=== PATIENT | male | born 1945 | race Caucasian/White ===

== ENCOUNTER 2019-01-05 07:45 | Inpatient (IN) ==
[2019-01-05] MEDS ORDERED: ONDANSETRON INJ 2 MG/ML 2 ML VIAL IV STA (08:21)
[2019-01-05] MEDS ORDERED: SODIUM CHLORIDE 0.9% 1000ML 1,000 ML IV SCH (08:30)
[2019-01-05 09:00] LABS: Basophils # (auto) 0.01 K/uL (0-0.2); Basophils % (auto) 0.1 %; Hematocrit (blood only) 37.6 % (42-52); Hemoglobin 13.2 g/dL (14.0-18.0); Immature Granulocytes # (auto) 0.02 K/uL (0.00-0.02); Immature Granulocytes % (auto) 0.2 %; Lymphocytes # (auto) 0.36 K/uL (1.2-3.4); Lymphocytes % (auto) 3.1 %; Mean Corpuscular Hgb Conc 35.1 g/dL (32-36); Mean Corpuscular Volume 79.8 fL (80-100); Mean Platelet Volume 9.8 fL (7.4-10.4); Monocytes # (auto) 0.62 K/uL (0.11-0.59); Monocytes % (auto) 5.4 %; Neutrophils # (auto) 10.53 K/uL (1.4-6.5); Neutrophils % (auto) 91.2 %; Platelet Count 149 K/uL (130-400); RDW Coefficient of Variation 17.1 % (11.5-14.5); RDW Standard Deviation 50.5 fL (36.4-46.3); Red Blood Count 4.71 M/uL (4.7-6.1); White Blood Count 11.54 K/uL (4.8-10.8)
--- NOTE | 2019-01-05 09:13 | Emergency Department Note ---
ED Visit Note I assisted Dr. Olguin in the evaluation and management of this patient. Please see his note for complete visit details. Leeann Wilcox MD PGY3 [facility] Family and Community Medicine Residency at [facility] . Resident Activity Tracking Resident Involvement: Resident Care Provided Care Provided: Adult ED
[2019-01-05 09:17] LABS: Albumin Level 2.8 gm/dl (3.4-5.0); BUN Creatinine Ratio 33.3 (10-20); Calcium 10.2 mg/dl (8.5-10.1); Est GFR (African American) 46.7; Est GFR (Non-African American) 40.3; Potassium 4.4 mmol/L (3.5-5.1)
[2019-01-05 09:20] LABS: Albumin Globulin Ratio 0.5 (0.9-2); Bilirubin,Total 0.8 mg/dl (0.2-1); Globulin 5.2 gm/dl (2.5-4.0)
--- NOTE | 2019-01-05 09:33 | CT Scan Report ---
ABDOMEN AND PELVIS CT WITHOUT CONTRAST CT DOSE: 297.49 mGy.cm HISTORY: lower abd pain, n/v/d TECHNIQUE: Multiaxial CT images of the abdomen and pelvis were performed without contrast. A dose lo wering technique was utilized adhering to the principles of ALARA. COMPARISON STUDY: None. FINDINGS: Mild dependent changes seen at the lung bases. No pneumoperitoneum. No pneumatosis. The une nhanced liver, gallbladder, spleen, pancreas, and adrenal glands are unremarkable. Normal caliber abd ominal aorta. The right kidney is within normal limits. Bilateral renal hypodense lesions are incompl etely characterized on this noncontrast study but favor cysts. Moderate to severe left-sided hydronep hrosis to the level of the ureteropelvic junction. No renal or ureteral calculi identified. Large mehreen unt of well-formed stool within the rectum. The majority of the colon is decompressed. The right lowe r quadrant ostomy. Distended gas and fluid-filled loops of small bowel seen throughout the abdomen. T hese measure up to 6.4 cm in diameter. There are decompressed loops of small bowel within the right l ower quadrant and lower mid abdomen at the area of suture material best seen on images 362 through 37 3. This likely represents the site of the high-grade small bowel obstruction. Small fat-containing mi dline ventral hernia. IMPRESSION: 1. High-grade small bowel obstruction with the transition point located within the lower mid abdomen/ right lower quadrant, likely associated with a site of prior bowel anastomosis. 2. Moderate to severe left-sided hydronephrosis to the level of the ureteropelvic junction. This may be secondary to compression of the ureter from the distended bowel loops. No renal or ureteral calcul i identified. 3. Large amount of well-formed stool within the distal colon. 4. Right lower quadrant colostomy. Electronically signed by: Dereje Aldana M.D. 01/05/2019 9:32 AM
--- NOTE | 2019-01-05 10:03 | Emergency Department Note ---
Entered by Carleen Kennedy acting as a scribe for Ovidio Olguin DO History of Present Illness General Chief complaint: GI Assessment Stated complaint: ABD PAIN Time Seen by Provider: 01/05/19 08:07 Source: patient and family () History of Present Illness Onset (ago): day(s) 5 Location: abdomen Pain Consistency: + other (persistent ) Maximum Pain Intensity: 9 Quality: + other (nausea, vomiting, and diarrhea) Associated symptoms: + fever/chills (positive chills; negative fever) and + other (positive lower abdominal pain; positive constipation) Treatments prior to arrival: other (nausea medication) The patient is a 73 year old male who presents to the Emergency Room with complaints of persistent nausea, vomiting, and diarrhea that began 5 days prior to arrival. The patient states that he has been vomiting about 1-2 times per day. Per the patient's , the patient has been taking some nausea medication for his symptoms. The patient's states that the patient has had some lower abdominal pain for an unknown amount of time. The patient reports some constipation recently. The patient's reports chills, but denies fevers. Per the patient's , the patient works out side in the heat frequently. The patient states that he had his bladder removed in August due to his bladder can cer. Home Medications Home Medications Medication Instructions Recorded Confirmed Type acetaminophen [Tylenol Extra 500 mg PO Q6H PRN 01/05/19 01/05/19 History Strength] aspirin 81 mg PO QAM 01/05/19 01/05/19 History atorvastatin 20 mg PO HS 01/05/19 01/05/19 History omeprazole 20 mg PO QAM 01/05/19 01/05/19 History ondansetron HCl 4 mg PO Q6H PRN 01/05/19 01/05/19 History sertraline 25 mg PO HS 01/05/19 01/05/19 History Allergies Allergy/AdvReac Type Severity Reaction Status Date / Time No Known Allergies Allergy Verified 01/05/19 08:20 Past Med/Surg History Medical History Heart murmur (Chronic) Bladder cancer Family History Other No pertinent family history in first degree relatives Social History Feels Safe at Home: Yes Review of Systems See HPI for pertinent positives & negatives. and A total of 10 systems reviewed and were otherwise negative Physical Exam Vital Signs Vital Signs - 24 hr 01/05/19 07:46 Temperature 36.5 C Temperature Source Oral Sepsis Recent Fever Within 48 Hours Yes Sepsis New/Unexplained Change in Mental Status No Sepsis Action Taken by Nursing Physician Notified Pulse Rate 114 H Respiratory Rate 18 Respiratory Effort / Characteristics Non-Labored Respiratory Depth Normal Blood Pressure 95/64 L Blood Pressure Mean 74 Blood Pressure Position Sitting Pulse Oximetry 97 Oxygen Delivery Method Room Air CONSTITUTIONAL/VITAL SIGNS: Reviewed / noted above. GENERAL: Non-toxic in appearance. INTEGUMENTARY: Warm, dry, and [place]. HEAD: Normocephalic. EYES: without scleral icterus or trauma. ENT/OROPHARYNX: clear and moist. LYMPHADENOPATHY/NECK: Is supple without lymphadenopathy or meningismus. RESPIRATORY: Lungs clear and equal. CARDIOVASCULAR: Regular rate and rhythm. GI/ABDOMEN: Tender to palpation of the left lower quadrant. Ureterostomy in the right lower quadrant that looks normal. Soft. No organomegaly or pulsatile mass. No rebound or guarding. Normal bowel sounds. EXTREMITIES: Warm and well perfused. BACK: No CVA tenderness. NEUROLOGICAL: Intact without focal deficits. PSYCHIATRIC: normal affect. MUSCULOSKELETAL: Normally developed with good muscle tone. Course 0830: The patient was seen and evaluated by the resident Leeann Wilcox. 0934: Past medical records reviewed. The patient was evaluated in room B3B. A complete history and physical exam was performed. 0948: I discussed the case with Dr. Fany Mosher who recommends having the patient further evaluated and states that he will consult. 0951: Dr. Francis discussed the case with Leeann WOLF who accepts the patient for further evaluation under Dr. Gustavo Crouch service. Consultations Consultation #1: I discussed the case with Dr. Fany Mosher who recommends having the patient further evaluated and states that he will consult. Time: 09:48 Consultation #2: Dr. Francis discussed the case with Leeann WOLF who accepts the patient for further evaluation under Dr. [facility] Hospital[facility] service Time: 09:51 Administered Medications Discontinued Medications Sodium Chloride (Nss 1000ml) 1,000 mls @ 999 mls/hr IV .Q1H1M MELLY Stop: 01/05/19 09:30 Last Admin: 01/05/19 08:39 Dose: 999 mls/hr Documented by: [id number] Ondansetron HCl (Zofran) 4 mg IV NOW STA Stop: 01/05/19 08:22 Last Admin: 01/05/19 08:39 Dose: 4 mg Documented by: [id number] Medical Decision Making Differential Diagnosis Differential diagnosis: Etiologies such as appendicitis, diverticulitis, PUD, biliary pathology, UTI, pancreatitis, obstruction, mesenteric ischemia, aortic pathology, infections, inflammatory bowel disease, renal colic, as well as others were entertained. Medical Records Attestation: I reviewed the patient's medical records. Home Medications Current Medication List: was personally reviewed by me Laboratory Data Attestation: I reviewed the patient's lab results. Result diagrams: 01/05/19 08:40 01/05/19 08:40 Lab Results 01/05/19 01/05/19 Range/Units 08:40 08:40 WBC 11.54 H (4.8-10.8) K/uL RBC 4.71 (4.7-6.1) M/uL Hgb 13.2 L (14.0-18.0) g/dL Hct 37.6 L (42-52) % MCV 79.8 L (80-100) fL MCH 28.0 (25-34) pg MCHC 35.1 (32-36) g/dL RDW Std Deviation 50.5 H (36.4-46.3) fL RDW Coeff of Lisa 17.1 H (11.5-14.5) % Plt Count 149 (130-400) K/uL MPV 9.8 (7.4-10.4) fL Immature Gran % (Auto) 0.2 % Neut % (Auto) 91.2 % Lymph % (Auto) 3.1 % [place] % (Auto) 5.4 % Eos % (Auto) 0.0 % Baso % (Auto) 0.1 % Immature Gran # (Auto) 0.02 (0.00-0.02) K/uL Neut # (Auto) 10.53 H (1.4-6.5) K/uL Lymph # (Auto) 0.36 L (1.2-3.4) K/uL [place] # (Auto) 0.62 H (0.11-0.59) K/uL Eos # (Auto) 0.00 (0-0.5) K/uL Baso # (Auto) 0.01 (0-0.2) K/uL Sodium 132 L (136-145) mmol/L Potassium 4.4 (3.5-5.1) mmol/L Chloride 98 (98-107) mmol/L Carbon Dioxide 27 (21-32) mmol/L Anion Gap 7.0 (3-11) BUN 55 H (7-18) mg/dl Creatinine 1.65 H (0.6-1.4) mg/dl Est Cr Clr Drug Dosing 35.0 ml/min Est GFR ( Amer) 46.7 Est GFR (Non-Af Amer) 40.3 BUN/Creatinine Ratio 33.3 H (10-20) Glucose 124 H (70-99) mg/dl Calcium 10.2 H (8.5-10.1) mg/dl Total Bilirubin 0.8 (0.2-1) mg/dl AST 22 (15-37) U/L ALT 31 (12-78) U/L Alkaline Phosphatase 109 (45-117) U/L Total Protein 8.0 (6.4-8.2) gm/dl Albumin 2.8 L (3.4-5.0) gm/dl Globulin 5.2 H (2.5-4.0) gm/dl Albumin/Globulin Ratio 0.5 L (0.9-2) Lipase 80 (73-393) U/L Imaging Data Radiologist's Impression: Radiology results as stated below per my review and the radiologist's interpretation: ABDOMEN AND PELVIS CT WITHOUT CONTRAST CT DOSE: 297.49 mGy.cm HISTORY: lower abd pain, n/v/d TECHNIQUE: Multiaxial CT images of the abdomen and pelvis were performed without contrast. A dose lowering technique was utilized adhering to the principles of ALARA. COMPARISON STUDY: None. FINDINGS: Mild dependent changes seen at the lung bases. No pneumoperitoneum. No pneumatosis. The unenhanced liver, gallbladder, spleen, pancreas, and adrenal glands are unremarkable. Normal caliber abdominal aorta. The right kidney is within normal limits. Bilateral renal hypodense lesions are incompletely characterized on this noncontrast study but favor cysts. Moderate to severe left-sided hydronephrosis to the level of the ureteropelvic junction. No renal or ureteral calculi identified. Large amount of well-formed stool within the rectum. The majority of the colon is decompressed. The right lower quadrant ostomy. Distended gas and fluid-filled loops of small bowel seen throughout the abdomen. These measure up to 6.4 cm in diameter. There are decompressed loops of small bowel within the right lower quadrant and lower mid abdomen at the area of suture material best seen on images 362 through 373. This likely represents the site of the high-grade small bowel obstruction. Small fat-containing midline ventral hernia. IMPRESSION: 1. High-grade small bowel obstruction with the transition point located within the lower mid abdomen/right lower quadrant, likely associated with a site of prior bowel anastomosis. 2. Moderate to severe left-sided hydronephrosis to the level of the ureteropelvic junction. This may be secondary to compression of the ureter from the distended bowel loops. No renal or ureteral calculi identified. 3. Large amount of well-formed stool within the distal colon. 4. Right lower quadrant colostomy. Electronically signed by: Dereje Aldana M.D. 01/05/2019 9:32 AM Blood Pressure Blood Pressure Findings: Low blood pressure Blood Pressure Disposition: further management by hospitalist JOLYNN Narrative This is a 73-year-old male who presents to the ED with a chief complaint of some lower abdominal pain that has been ongoing for the past 4 to 5 days. The patient also reports nausea, vomiting diarrhea. The patient is somewhat of a poor historian. The patient does have a history of bladder cancer and has had his bladder removed and has a ureterostomy stoma. The patient CT scan today reveals a small bowel obstruction. Details as noted above. There is also some moderate to severe left-sided hydronephrosis possibly related to the obstruction. His BUN is 55. CBC is unremarkable. Creatinine is 1.65. The patient was treated with normal saline IV. He was given IV Zofran. NG tube was ordered. I spoke with Dr. Ludwig who will see the patient in consult. I spoke with the hospitalist, who will see the patient for admission. Impression & Plan SBO (small bowel obstruction), Vomiting Discharge Plan Visit Data Chief Complaint: GI Assessment Stated Complaint: ABD PAIN ED Provider: Ovidio Olguin ED Midlevel Provider: Leeann Wilcox Discharge Problem: SBO (small bowel obstruction), Vomiting Patient Disposition: Being Evaluated by Hospitalist Forms Stand Alone Forms: My [facility] Prescriptions Prescriptions: No Action atorvastatin 20 mg tablet 20 mg PO HS RF: 0 ondansetron HCl 4 mg tablet 4 mg PO Q6H PRN (Reason: Nausea) RF: 0 aspirin 81 mg Tablet,Delayed Release (Dr/Ec) 81 mg PO QAM RF: 0 acetaminophen [Tylenol Extra Strength] 500 mg Tablet 500 mg PO Q6H PRN (Reason: Pain) RF: 0 sertraline 25 mg tablet 25 mg PO HS RF: 0 omeprazole 20 mg capsule,delayed release(DR/EC) 20 mg PO QAM RF: 0 Referrals Referrals: Eric Monaco MD [Primary Care Provider] - Discharge Problem: Vomiting Qualifiers: Vomiting type: unspecified Vomiting Intractability: non-intractable Nausea presence: with nausea Qualified Code(s): R11.2 - Nausea with vomiting, u nspecified The scribe's documentation has been prepared under my direction and personally reviewed by me in its entirety. I confirm that the note above accurately reflects all work, treatment, procedures, and medical decision making performed by me.
[2019-01-05 10:24] LABS: Appearance Urine Clear (Clear); Bilirubin Urine Negative (Negative); Blood Urine 2+ (Negative); Color Urine Yellow; Epithelial Cell Urine Auto >30 /lpf (0-5); Glucose Urine UA Negative (Negative); Ketones Urine Negative (Negative); Leukocyte Esterase Urine 1+ (Negative); Nitrite Urine Negative (Negative); Protein Urine 2+ (Negative); Urobilinogen Urine Negative (Negative)
[2019-01-05] MEDS ORDERED: MoRPHine SULFATE 4 MG/ML 1 ML CARP\\VIAL IV ONE (10:38)
[2019-01-05 10:48] LABS: Bacteria Urine Automated 1+ (Negative)
--- NOTE | 2019-01-05 12:19 | XRay Report ---
KUB HISTORY: Status post placement of an enteric tube NGT placed COMPARISON: CT abdomen and pelvis 01/05/2019 FINDINGS: Prior median sternotomy. A catheter projects over the midline which loops upon itself, dist al tip projected superiorly outside the [id number]. Multiple distended small bowel loops redemonst rated throughout the abdomen. No pneumatosis or pneumoperitoneum. Degenerative changes of the spine. IMPRESSION: 1. High-grade small bowel obstruction without pneumoperitoneum. 2. Enteric tube looped within the esophagus, distal tip projected superiorly. Repositioning with foll ow-up imaging is needed. Electronically signed by: Alirio Diego M.D. 01/05/2019 12:17 PM
--- NOTE | 2019-01-05 13:00 | History & Physical Report ---
Date of Service January 05, 2019 Assessment & Plan (1) SBO (small bowel obstruction): -Admit to [facility] -Patient presenting from home with reports of abdominal distention, nausea, vomiting -In the ED, CT ABD/pelvis shows high-grade small bowel obstruction with the transition point located within the lower mid abdomen/right lower quadrant, likely associated with a site of prior bowel anastomosis. -Of note, patient underwent total cystectomy with ileal conduit placement 08/2018 at [facility] for high-grade bladder cancer -Currently hemodynamically stable, no acute distress; lactate 1.2 -Attempted to place NG tube in ED however nursing staff was unsuccessful -Supportive care with IVF, pain and nausea control, n.p.o. -Follow-up KUB in the a.m. -General surgery consult, case discussed with Dr. Ludwig -will observe overnight, with low threshold to transfer to [facility] given relatively recent surgery there (2) JAYSON (acute kidney injury): -Creatinine 1.6 (baseline ~0.8) -Likely prerenal nature secondary to poor p.o. intake, vomiting -IVF, follow renal functions (3) GERD (gastroesophageal reflux disease): -IV H2 isbaell while n.p.o. (4) Dyslipidemia: -Holding statin while n.p.o. (5) DVT prophylaxis: -SQ heparin History of Present Illness Chief Complaint: Abdominal pain, nausea, vomiting Primary Care Provider: Eric Monaco MD 73-year-old male who presents the ED for evaluation of abdominal pain, nausea, vomiting, diarrhea. Of note, patient recently underwent total cystectomy with ureteroileal conduit placement 08/2018 at [facility] for high-grade bladder cancer. Patient had been doing overall well since his surgery. Patient has been having some memory issues and is therefore a somewhat poor historian. is at the bedside who provides some history as well. Patient reports he has noted increasing abdominal distention over the past 2 weeks. Over the past 2 days, he has developed abdominal pain with nausea and vomiting. He denies hematemesis or coffee-ground emesis. Last normal bowel movement was 5 days ago. Patient does not believe he has been passing flatus for the past couple of days. Patient has been struggling with constipation since his surgery. He denies bright red bleeding per rectum or dark tarry stools. No chest pain or shortness of breath. Has had some occasional chills however did not take his temperature. Denies lightheadedness, dizziness, diaphoresis, syncopal events. In the ED, CT ABD/pelvis is showing high-grade small bowel obstruction with the transition point located within the lower mid abdomen/right lower quadrant, likely associated with a site of prior bowel anastomosis. Patient was given IVF and IV Zofran. Allergies Allergy/AdvReac Type Severity Reaction Status Date / Time No Known Allergies Allergy Verified 01/05/19 08:20 Home Medications Home Medications Medication Instructions Recorded Confirmed Type acetaminophen [Tylenol Extra 500 mg PO Q6H PRN 01/05/19 01/05/19 History Strength] aspirin 81 mg PO QAM 01/05/19 01/05/19 History atorvastatin 20 mg PO HS 01/05/19 01/05/19 History omeprazole 20 mg PO QAM 01/05/19 01/05/19 History ondansetron HCl 4 mg PO Q6H PRN 01/05/19 01/05/19 History sertraline 25 mg PO HS 01/05/19 01/05/19 History Past Med/Surg History Medical History Bladder cancer (Chronic) GERD (gastroesophageal reflux disease) (Chronic) Dyslipidemia (Chronic) Surgical History H/O left wrist surgery (Chronic) S/P ileal conduit (Chronic) H/O total cystectomy (Chronic) History of appendectomy (Chronic) H/O prostatectomy (Chronic) History of carpal tunnel surgery of right wrist (Chronic) History of carpal tunnel surgery of left wrist (Chronic) S/P ascending aortic aneurysm repair (Chronic) History of aortic valve replacement with bioprosthetic valve (Chronic) Family History Father Stroke Social History Preferred Language: Mongolian Communication Ability: Effective [employer] Required: No Beliefs That Will Affect Care: None Current Living Situation: Spouse Other Information That Helps Us Care for You: No Feels Safe at Home: Yes Safety Concerns: Feels Safe At This Time Smoking Status: Former smoker Tobacco Type: cigars ; Cigarettes Per Day: 20 ; Do You Dip or Chew Tobacco: No ; Smoking End Date: 07/14/2010 ; Second Hand Exposure: No ; Tobacco Cessation Education Requested by Patient: No Hx Alcohol Use: Yes Alcohol type: beer Hx Substance Use: No Review of Systems Review of Systems: ROS per HPI, all other systems reviewed and negative Physical Exam Constitutional: WD/WN, vitals as above Eyes: PERRL, conjunctivae normal, anicteric sclerae ENMT: external ear and nose normal, oropharynx normal Respiratory: normal respiratory effort, lungs clear to auscultation Cardiovascular: Rate/Rhythm: regular rate and regular rhythm Vessels: normal peripheral pulses Extremities: no edema Gastrointestinal (Abdomen): Inspection/Auscultation: + abdomen distended; + abnormal bowel sounds (Hypoactive) Percussion/Palpation: + abdomen tender (Generalized); + abdomen not soft (Semifirm) and no hepatosplenomegaly Ileal conduit noted to RLQ, clear yellow urine noted in bag, stoma pink Musculoskeletal: no cyanosis or clubbing, extremities motor strength 5/5 Skin: no rashes, warm and dry Neurologic: PERRL, EOMI, accommodation nl, no face palsy, no dysarthria Psychiatric: Orientation: alert and oriented x 3 Affect: + flat affect Cognition: + recent memory not intact Insight: + limited insight Results & Data Vital Signs (Past 12 Hours) Vital Signs Temp Pulse Pulse Resp BP BP Pulse Ox 01/05/19 10:05 99 H 17 114/79 94 01/05/19 07:46 36.5 C 114 H 18 95/64 L 97 Laboratory Results Short CBC 01/05/19 Range/Units 08:40 WBC 11.54 H (4.8-10.8) K/uL Hgb 13.2 L (14.0-18.0) g/dL Hct 37.6 L (42-52) % Plt Count 149 (130-400) K/uL BMP 01/05/19 08:40 Sodium 132 L Potassium 4.4 Chloride 98 Carbon Dioxide 27 BUN 55 H Creatinine 1.65 H Glucose 124 H Calcium 10.2 H Liver Function 01/05/19 Range/Units 08:40 Total Bilirubin 0.8 (0.2-1) mg/dl AST 22 (15-37) U/L ALT 31 (12-78) U/L Alkaline Phosphatase 109 (45-117) U/L Albumin 2.8 L (3.4-5.0) gm/dl Urine 01/05/19 Range/Units 10:03 Urine Color Yellow Urine Appearance Clear (Clear) Urine pH 6.0 (4.5-7.5) Ur Specific [place] 1.020 (1.000-1.030) Urine Protein 2+ H (Negative) Urine Glucose (UA) Negative (Negative) Diagnostic Findings CT ABD/PELVIS IMPRESSION: 1. High-grade small bowel obstruction with the transition point located within the lower mid abdomen/right lower quadrant, likely associated with a site of prior bowel anastomosis. 2. Moderate to severe left-sided hydronephrosis to the level of the ureteropelv ic junction. This may be secondary to compression of the ureter from the distended bowel loops. No renal or ureteral calculi identified. 3. Large amount of well-formed stool within the distal colon. 4. Right lower quadrant colostomy. Code Status & VTE Plan Code Status Patient is a full code as per my discussion with him. VTE Prophylaxis Plan VTE Prophylaxis will be ordered: Yes Supervising Physician Co-Signing Physician Notes 73-year-old male with history of total cystectomy with Uretero ileal conduit placement on 08/2018 at [facility] for high-grade bladder carcinoma, comes in with complaint of abdominal pain, nausea, vomiting, constipation for [address] scan suggestive of high grade small bowel obstruction Exam Generalawake, alert, oriented x3, not in acute distress HEENT- No icterus LUNGS- AEBE, no wheezing, rhonchi HEART- S1, S2 normal ABDOMEN- Illeal conduit + , Soft, Minimal distension +, Non tender, BS +ve EXT- No edema SMALL BOWEL OBSTRUCTION Patient presenting from home with reports of abdominal distention, nausea, vomiting, constipation x 5 days -CT ABD/pelvis shows high-grade small bowel obstruction with the transition point located within the lower mid abdomen/right lower quadrant, likely associated with a site of prior bowel anastomosis. -Of note, patient underwent total cystectomy with ileal conduit placement 08/2018 at [facility] for high-grade bladder cancer -Currently hemodynamically stable, no acute distress; lactate 1.2 -Attempted to place NG tube in ED however nursing staff was unsuccessful -Supportive care with IVF, pain and nausea control, n.p.o. -Follow-up KUB in the a.m. -General surgery consult, case discussed with Dr. Ludwig -will observe overnight, with low threshold to transfer to [facility] given relatively recent surgery there JAYSON -Creatinine 1.6 (baseline ~0.8) -Likely prerenal nature secondary to poor p.o. intake, vomiting -IVF, follow renal functions GERD -On IV H2 isabell while NPO DYSLIPIDEMIA -Hold statin while PO on hold DVT PROPHYLAXIS -Heparin SQ DISPOSITION Admit to med surg
[2019-01-05] MEDS ORDERED: ONDANSETRON INJ 2 MG/ML 2 ML VIAL IV PRN (13:25)
[2019-01-05] MEDS: D5W AND NSS 1,000 ML IV SCH ×2 (13:46→20:51)
[2019-01-05 14:15] LABS: INR 1.2 (0.9-1.1); Prothrombin Time 12.5 Seconds (9.0-12.0)
[2019-01-05] MEDS: FAMOTIDINE 20 MG in SYRINGE 3 ML IV SCH ×2 (14:24→20:50)
[2019-01-05] MEDS: HEPARIN SOD 5,000 UNIT/0.5 ML VIAL SQ SCH ×2 (14:49→21:30)
--- NOTE | 2019-01-05 15:25 | Surgery Consultation ---
Date of Consultation January 05, 2019 Assessment & Plan (1) SBO (small bowel obstruction): Patient has been having constipation. I would give him a suppository that I will order. He also has CT evidence of a bowel obstruction related possibly to the end anastomosis. Hopefully this will resolve with conservative therapy. An NG was attempted but was not able to be placed on 3 occasions. If he vomits I would recommend a fourth attempt. If surgery is necessary then would need to discuss with the family return back to [facility]. Present on Admission?: Yes History of Present Illness Requesting Physician: Coty Simon MD Attending Physician: Coty Simon History of Present Illness I been asked by Dr. Simon to see this 73-year-old male who presented to the emergency room with nausea vomiting and abdominal distention. The patient is a very poor historian. He was able to provide some history but most of the history was obtained from the medical record. 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 He has an ileal conduit. He has been having difficulty with constipation especially over the last 5 days. Over the last day and certainly over the last 24 hours he has had nausea with vomiting. He has not had any fever or chills. His abdomen is been mildly distended. He has not had issues with urine output in that the conduit is functioning. Allergies Allergy/AdvReac Type Severity Reaction Status Date / Time No Known Allergies Allergy Verified 01/05/19 08:20 Home Medications Home Medications Medication Instructions Recorded Confirmed Type acetaminophen [Tylenol Extra 500 mg PO Q6H PRN 01/05/19 01/05/19 History Strength] aspirin 81 mg PO QAM 01/05/19 01/05/19 History atorvastatin 20 mg PO HS 01/05/19 01/05/19 History omeprazole 20 mg PO QAM 01/05/19 01/05/19 History ondansetron HCl 4 mg PO Q6H PRN 01/05/19 01/05/19 History sertraline 25 mg PO HS 01/05/19 01/05/19 History Patient History Medical History Bladder cancer (Chronic) GERD (gastroesophageal reflux disease) (Chronic) Dyslipidemia (Chronic) Surgical History H/O left wrist surgery (Chronic) S/P ileal conduit (Chronic) H/O total cystectomy (Chronic) History of appendectomy (Chronic) H/O prostatectomy (Chronic) History of carpal tunnel surgery of right wrist (Chronic) History of carpal tunnel surgery of left wrist (Chronic) S/P ascending aortic aneurysm repair (Chronic) History of aortic valve replacement with bioprosthetic valve (Chronic) Family History Father Stroke Social History Preferred Language: Wolof Communication Ability: Effective Live Study Manager Required: No Beliefs That Will Affect Care: None Current Living Situation: Spouse Other Information That Helps Us Care for You: No Feels Safe at Home: Yes Safety Concerns: Feels Safe At This Time Smoking Status: Former smoker Tobacco Type: cigars ; Cigarettes Per Day: 20 ; Do You Dip or Chew Tobacco: No ; Smoking End Date: 07/14/2010 ; Second Hand Exposure: No ; Tobacco Cessation Education Requested by Patient: No Hx Alcohol Use: Yes Alcohol type: beer Hx Substance Use: No Physical Exam Constitutional: no acute distress Respiratory: normal respiratory effort, lungs clear to auscultation Cardiovascular: Rate/Rhythm: regular rate and regular rhythm Gastrointestinal (Abdomen): Percussion/Palpation: + abdomen tender (Mild lower abdominal) and abdomen soft; abdomen not rigid Ileal conduit is in place. There is urine in the bag. The conduit appears healthy Lymphatic: no subclavicular lymphadenopathy Results & Data Vital Signs (Past 12 Hours) Vital Signs Temp Pulse Pulse Pulse Resp BP BP 01/05/19 13:20 36.2 C L 91 H 18 118/82 01/05/19 13:01 95 H 18 114/73 01/05/19 10:05 99 H 17 114/79 01/05/19 07:46 36.5 C 114 H 18 95/64 L Pulse Ox 01/05/19 13:20 94 01/05/19 13:01 94 01/05/19 10:05 94 01/05/19 07:46 97 Laboratory Results 01/05/19 01/05/19 01/05/19 Range/Units 12:38 10:03 08:40 WBC (4.8-10.8) K/uL RBC (4.7-6.1) M/uL Hgb (14.0-18.0) g/dL Hct (42-52) % MCV (80-100) fL MCH (25-34) pg MCHC (32-36) g/dL RDW Std Deviation (36.4-46.3) fL RDW Coeff of Lisa (11.5-14.5) % Plt Count (130-400) K/uL MPV (7.4-10.4) fL Immature Gran % (Auto) % Neut % (Auto) % Lymph % (Auto) % Nash % (Auto) % Eos % (Auto) % Baso % (Auto) % Immature Gran # (Auto) (0.00-0.02) K/uL Neut # (Auto) (1.4-6.5) K/uL Lymph # (Auto) (1.2-3.4) K/uL Nash # (Auto) (0.11-0.59) K/uL Eos # (Auto) (0-0.5) K/uL Baso # (Auto) (0-0.2) K/uL PT 12.5 H (9.0-12.0) Seconds INR 1.2 H (0.9-1.1) Sodium (136-145) mmol/L Potassium (3.5-5.1) mmol/L Chloride (98-107) mmol/L Carbon Dioxide (21-32) mmol/L Anion Gap (3-11) BUN (7-18) mg/dl Creatinine (0.6-1.4) mg/dl Est Cr Clr Drug Dosing ml/min Est GFR ( Amer) Est GFR (Non-Af Amer) BUN/Creatinine Ratio (10-20) Glucose (70-99) mg/dl Lactate 1.2 (0.4-2.0) mmol/L Calcium (8.5-10.1) mg/dl Total Bilirubin (0.2-1) mg/dl AST (15-37) U/L ALT (12-78) U/L Alkaline Phosphatase (45-117) U/L Total Protein (6.4-8.2) gm/dl Albumin (3.4-5.0) gm/dl Globulin (2.5-4.0) gm/dl Albumin/Globulin Ratio (0.9-2) Lipase (73-393) U/L Urine Color Yellow Urine Appearance Clear (Clear) Urine pH 6.0 (4.5-7.5) Ur Specific [place] 1.020 (1.000-1.030) Urine Protein 2+ H (Negative) Urine Glucose (UA) Negative (Negative) Urine Ketones Negative (Negative) Urine Blood 2+ H (Negative) Urine Nitrite Negative (Negative) Urine Bilirubin Negative (Negative) Urine Urobilinogen Negative (Negative) Ur Leukocyte Esterase 1+ H (Negative) Urine WBC (Auto) 10-30 H (0-5) /hpf Urine RBC (Auto) 5-10 H (0-4) /hpf U Hyaline Cast (Auto) 5-10 H (0-5) /lpf U Epithel Cells (Auto) >30 H (0-5) /lpf Urine Bacteria (Auto) 1+ H (Negative) Ur Renal Epithelial Cell Not Reportable Granular Casts 1-5 H (0) /lpf 01/05/19 01/05/19 Range/Units 08:40 08:40 WBC 11.54 H (4.8-10.8) K/uL RBC 4.71 (4.7-6.1) M/uL Hgb 13.2 L (14.0-18.0) g/dL Hct 37.6 L (42-52) % MCV 79.8 L (80-100) fL MCH 28.0 (25-34) pg MCHC 35.1 (32-36) g/dL RDW Std Deviation 50.5 H (36.4-46.3) fL RDW Coeff of Lisa 17.1 H (11.5-14.5) % Plt Count 149 (130-400) K/uL MPV 9.8 (7.4-10.4) fL Immature Gran % (Auto) 0.2 % Neut % (Auto) 91.2 % Lymph % (Auto) 3.1 % Nash % (Auto) 5.4 % Eos % (Auto) 0.0 % Baso % (Auto) 0.1 % Immature Gran # (Auto) 0.02 (0.00-0.02) K/uL Neut # (Auto) 10.53 H (1.4-6.5) K/uL Lymph # (Auto) 0.36 L (1.2-3.4) K/uL Nash # (Auto) 0.62 H (0.11-0.59) K/uL Eos # (Auto) 0.00 (0-0.5) K/uL Baso # (Auto) 0.01 (0-0.2) K/uL PT (9.0-12.0) Seconds INR (0.9-1.1) Sodium 132 L (136-145) mmol/L Potassium 4.4 (3.5-5.1) mmol/L Chloride 98 (98-107) mmol/L Carbon Dioxide 27 (21-32) mmol/L Anion Gap 7.0 (3-11) BUN 55 H (7-18) mg/dl Creatinine 1.65 H (0.6-1.4) mg/dl Est Cr Clr Drug Dosing 35.0 ml/min Est GFR ( Amer) 46.7 Est GFR (Non-Af Amer) 40.3 BUN/Creatinine Ratio 33.3 H (10-20) Glucose 124 H (70-99) mg/dl Lactate (0.4-2.0) mmol/L Calcium 10.2 H (8.5-10.1) mg/dl Total Bilirubin 0.8 (0.2-1) mg/dl AST 22 (15-37) U/L ALT 31 (12-78) U/L Alkaline Phosphatase 109 (45-117) U/L Total Protein 8.0 (6.4-8.2) gm/dl Albumin 2.8 L (3.4-5.0) gm/dl Globulin 5.2 H (2.5-4.0) gm/dl Albumin/Globulin Ratio 0.5 L (0.9-2) Lipase 80 (73-393) U/L Urine Color Urine Appearance (Clear) Urine pH (4.5-7.5) Ur Specific [place] (1.000-1.030) Urine Protein (Negative) Urine Glucose (UA) (Negative) Urine Ketones (Negative) Urine Blood (Negative) Urine Nitrite (Negative) Urine Bilirubin (Negative) Urine Urobilinogen (Negative) Ur Leukocyte Esterase (Negative) Urine WBC (Auto) (0-5) /hpf Urine RBC (Auto) (0-4) /hpf U Hyaline Cast (Auto) (0-5) /lpf U Epithel Cells (Auto) (0-5) /lpf Urine Bacteria (Auto) (Negative) Ur Renal Epithelial Cell Granular Casts (0) /lpf Diagnostic Findings ABDOMEN AND PELVIS CT WITHOUT CONTRAST CT DOSE: 297.49 mGy.cm HISTORY: lower abd pain, n/v/d TECHNIQUE: Multiaxial CT images of the abdomen and pelvis were performed without contrast. A dose lowering technique was utilized adhering to the principles of ALARA. COMPARISON STUDY: None. FINDINGS: Mild dependent changes seen at the lung bases. No pneumoperitoneum. No pneumatosis. The unenhanced liver, gallbladder, spleen, pancreas, and adrenal glands are unremarkable. Normal caliber abdominal aorta. The right kidney is within normal limits. Bilateral renal hypodense lesions are incompletely characterized on this noncontrast study but favor cysts. Moderate to severe left-sided hydronephrosis to the level of the ureteropelvic junction. No renal or ureteral calculi identified. Large amount of well-formed stool within the rectum. The majority of the colon is decompressed. The right lower quadrant ostomy. Distended gas and fluid-filled loops of small bowel seen throughout the abdomen. These measure up to 6.4 cm in diameter. There are decompressed loops of small bowel within the right lower quadrant and lower mid abdomen at the area of suture material best seen on images 362 through 373. This likely represents the site of the high-grade small bowel obstruction. Small fat-containing midline ventral hernia. IMPRESSION: 1. High-grade small bowel obstruction with the transition point located within the lower mid abdomen/right lower quadrant, likely associated with a site of prior bowel anastomosis. 2. Moderate to severe left-sided hydronephrosis to the level of the ureteropelvic junction. This may be secondary to compression of the ureter from the distended bowel loops. No renal or ureteral calculi identified. 3. Large amount of well-formed stool within the distal colon. 4. Right lower quadrant colostomy.
[2019-01-05] MEDS: BISACODYL 5 MG TABEC PO ONE ×2 (17:13→17:41)
[2019-01-05] MEDS ORDERED: BISACODYL 10 MG SUPP PR STA (17:50)
[2019-01-05] MEDS: ACETAMINOPHEN 1000 MG/100 ML IV IV PRN (17:57)
[2019-01-06] MEDS: ACETAMINOPHEN 1000 MG/100 ML IV IV PRN (04:01)
[2019-01-06] MEDS: D5W AND NSS 1,000 ML IV SCH ×3 (04:01→20:42)
[2019-01-06] MEDS: HEPARIN SOD 5,000 UNIT/0.5 ML VIAL SQ SCH ×3 (05:08→21:55)
[2019-01-06 07:37] LABS: Hematocrit (blood only) 32.1 % (42-52); Hemoglobin 11.2 g/dL (14.0-18.0); Mean Corpuscular Hgb Conc 34.9 g/dL (32-36); Mean Corpuscular Volume 77.3 fL (80-100); Mean Platelet Volume 9.4 fL (7.4-10.4); Platelet Count 132 K/uL (130-400); RDW Coefficient of Variation 16.9 % (11.5-14.5); RDW Standard Deviation 48.1 fL (36.4-46.3); Red Blood Count 4.15 M/uL (4.7-6.1); White Blood Count 6.82 K/uL (4.8-10.8)
[2019-01-06 08:05] LABS: BUN Creatinine Ratio 34.7 (10-20); Calcium 8.7 mg/dl (8.5-10.1); Creatinine Clr Calc Pharmacy 43.5 ml/min; Est GFR (African American) 61.2; Est GFR (Non-African American) 52.8; Magnesium 2.3 mg/dl (1.8-2.4); Potassium 4.1 mmol/L (3.5-5.1)
[2019-01-06] MEDS: FAMOTIDINE 20 MG in SYRINGE 3 ML IV SCH ×2 (08:21→20:35)
--- NOTE | 2019-01-06 08:36 | XRay Report ---
KUB CLINICAL HISTORY: Small bowel obstruction. FINDINGS: 2 AP supine abdominal radiographs are compared to abdominal radiograph and CT dated 9. There is evidence of persistent small bowel obstruction. Small bowel loops measure up to 5.5 cm. N o evidence of intraperitoneal free air is seen on these supine images. There are no abnormal abdomina l calcifications. The skeletal structures are osteopenic. Advanced lumbosacral spondylosis is observe d. Midline sternotomy wires are noted. IMPRESSION: Findings are consistent with persistent small bowel obstruction. Electronically signed by: Clint Jo M.D. 01/06/2019 8:34 AM
--- NOTE | 2019-01-06 08:55 | Hospitalist Progress Note ---
Date of Service January 06, 2019 Assessment & Plan (1) SBO (small bowel obstruction): -Patient presenting from home with reports of abdominal distention, nausea, vomiting, no BM x 5 days -In the ED, CT ABD/pelvis shows high-grade small bowel obstruction with the transition point located within the lower mid abdomen/right lower quadrant, likely associated with a site of prior bowel anastomosis. -Of note, patient underwent total cystectomy with ileal conduit placement 08/2018 at [facility] for high-grade bladder cancer -Attempted to place NG tube in ED however nursing staff was unsuccessful -NPO (Strict), IVF, pain and nausea control -KUB today AM- Persistent SBO -General surgery consult, case discussed with Dr. Ludwig - Observe for now and low threshold to transfer to [facility] given relatively recent surgery there (2) JAYSON (acute kidney injury): Improving -Creatinine 1.6 (baseline ~0.8), now trending down -Likely prerenal nature secondary to poor p.o. intake, vomiting -Monitor trend (3) GERD (gastroesophageal reflux disease): -IV H2 isabell while n.p.o. (4) Dyslipidemia: -Holding statin while n.p.o. (5) DVT prophylaxis: -SQ heparin POSSIBLE UNDERLYING DEMENTIA Patient is oriented only to self, knows that this is a hospital, have some paranoid delusions -Observe FULL CODE DISPOSITION Medical mx in progress Subjective Patient did get more confused over night. Tells me they were playing games with me at night. Knows that he is in the hospital, oriented to self, knows his date of . No episodes of agitation. Does complain of generalized abdominal pain. No nausea or vomiting episodes. No fever, chills. No BM yet Continues to be n.p.o., strict without sips or chips or medications Physical Exam Physical Exam: GENERAL-awake, disoriented x2. Oriented to self, place. LUNGS- Air entry bilaterally equal. No rales, rhonchi, crackles, wheezes heard. HEART- Regular rate and rhythm. No murmurs ABDOMEN-ileal conduit present, soft, abdominal distention present, no guarding or rigidity, bowel sounds sluggish EXTREMITIES- Good peripheral pulses, no edema Results & Data Vital Signs (Past 12 Hours) Vital Signs Temp Pulse Pulse Resp BP Pulse Ox 01/06/19 07:23 109 H 01/06/19 07:22 36.6 C 91 H 18 114/79 95 01/06/19 05:19 37.3 C 97 H 18 100/65 92 01/06/19 04:37 97 H 01/05/19 22:50 36.2 C L 102 H 20 115/79 94
--- NOTE | 2019-01-06 09:47 | Surgery Progress Note ---
Date of Service January 06, 2019 Assessment & Plan (1) SBO (small bowel obstruction): Small bowel obstruction persists White count returned to normal KUB noted Consider conservative management for another 24 hours and if there is no resolution then discussion with urology in [place] would be appropriate Subjective Seems confused today Nursing reports that he was trying to push them earlier when he tried to walk out into the hallway unaccompanied No further vomiting No bowel movement or flatus as yet Physical Exam Constitutional: no acute distress Gastrointestinal (Abdomen): Inspection/Auscultation: + abdomen distended (Mild and unchanged) Percussion/Palpation: + abdomen tender (Just to the right of the scar in the upper portion) and abdomen soft Results & Data Vital Signs (Past 12 Hours) Vital Signs Temp Pulse Pulse Resp BP Pulse Ox 01/06/19 07:23 109 H 01/06/19 07:22 36.6 C 91 H 18 114/79 95 01/06/19 05:19 37.3 C 97 H 18 100/65 92 01/06/19 04:37 97 H 01/05/19 22:50 36.2 C L 102 H 20 115/79 94 Laboratory Results 01/06/19 01/06/19 01/05/19 Range/Units 07:10 07:10 12:38 WBC 6.82 (4.8-10.8) K/uL RBC 4.15 L (4.7-6.1) M/uL Hgb 11.2 L (14.0-18.0) g/dL Hct 32.1 L (42-52) % MCV 77.3 L (80-100) fL MCH 27.0 (25-34) pg MCHC 34.9 (32-36) g/dL RDW Std Deviation 48.1 H (36.4-46.3) fL RDW Coeff of Lisa 16.9 H (11.5-14.5) % Plt Count 132 (130-400) K/uL MPV 9.4 (7.4-10.4) fL PT (9.0-12.0) Seconds INR (0.9-1.1) Sodium 137 (136-145) mmol/L Potassium 4.1 (3.5-5.1) mmol/L Chloride 107 (98-107) mmol/L Carbon Dioxide 24 (21-32) mmol/L Anion Gap 6.0 (3-11) BUN 46 H (7-18) mg/dl Creatinine 1.32 D (0.6-1.4) mg/dl Est Cr Clr Drug Dosing 43.5 ml/min Est GFR ( Amer) 61.2 Est GFR (Non-Af Amer) 52.8 BUN/Creatinine Ratio 34.7 H (10-20) Glucose 127 H (70-99) mg/dl Lactate 1.2 (0.4-2.0) mmol/L Calcium 8.7 (8.5-10.1) mg/dl Phosphorus 3.0 (2.5-4.9) mg/dl Magnesium 2.3 (1.8-2.4) mg/dl Urine Color Urine Appearance (Clear) Urine pH (4.5-7.5) Ur Specific [place] (1.000-1.030) Urine Protein (Negative) Urine Glucose (UA) (Negative) Urine Ketones (Negative) Urine Blood (Negative) Urine Nitrite (Negative) Urine Bilirubin (Negative) Urine Urobilinogen (Negative) Ur Leukocyte Esterase (Negative) Urine WBC (Auto) (0-5) /hpf Urine RBC (Auto) (0-4) /hpf U Hyaline Cast (Auto) (0-5) /lpf U Epithel Cells (Auto) (0-5) /lpf Urine Bacteria (Auto) (Negative) Ur Renal Epithelial Cell Granular Casts (0) /lpf 01/05/19 01/05/19 Range/Units 10:03 08:40 WBC (4.8-10.8) K/uL RBC (4.7-6.1) M/uL Hgb (14.0-18.0) g/dL Hct (42-52) % MCV (80-100) fL MCH (25-34) pg MCHC (32-36) g/dL RDW Std Deviation (36.4-46.3) fL RDW Coeff of Lisa (11.5-14.5) % Plt Count (130-400) K/uL MPV (7.4-10.4) fL PT 12.5 H (9.0-12.0) Seconds INR 1.2 H (0.9-1.1) Sodium (136-145) mmol/L Potassium (3.5-5.1) mmol/L Chloride (98-107) mmol/L Carbon Dioxide (21-32) mmol/L Anion Gap (3-11) BUN (7-18) mg/dl Creatinine (0.6-1.4) mg/dl Est Cr Clr Drug Dosing ml/min Est GFR ( Amer) Est GFR (Non-Af Amer) BUN/Creatinine Ratio (10-20) Glucose (70-99) mg/dl Lactate (0.4-2.0) mmol/L Calcium (8.5-10.1) mg/dl Phosphorus (2.5-4.9) mg/dl Magnesium (1.8-2.4) mg/dl Urine Color Yellow Urine Appearance Clear (Clear) Urine pH 6.0 (4.5-7.5) Ur Specific [place] 1.020 (1.000-1.030) Urine Protein 2+ H (Negative) Urine Glucose (UA) Negative (Negative) Urine Ketones Negative (Negative) Urine Blood 2+ H (Negative) Urine Nitrite Negative (Negative) Urine Bilirubin Negative (Negative) Urine Urobilinogen Negative (Negative) Ur Leukocyte Esterase 1+ H (Negative) Urine WBC (Auto) 10-30 H (0-5) /hpf Urine RBC (Auto) 5-10 H (0-4) /hpf U Hyaline Cast (Auto) 5-10 H (0-5) /lpf U Epithel Cells (Auto) >30 H (0-5) /lpf Urine Bacteria (Auto) 1+ H (Negative) Ur Renal Epithelial Cell Not Reportable Granular Casts 1-5 H (0) /lpf
[2019-01-07] MEDS: D5W AND NSS 1,000 ML IV SCH ×2 (04:31→11:56)
[2019-01-07] MEDS: HEPARIN SOD 5,000 UNIT/0.5 ML VIAL SQ SCH ×3 (05:13→21:12)
[2019-01-07] MEDS: FAMOTIDINE 20 MG in SYRINGE 3 ML IV SCH (08:00)
--- NOTE | 2019-01-07 09:35 | Surgery Progress Note ---
Date of Service January 07, 2019 Assessment & Plan (1) SBO (small bowel obstruction): Had large bowel movement No distention or tenderness today Evidence of SBO clinically resolving Consider clear liquids later today Present on Admission?: Yes Subjective Denies abdominal pain and nausea today Had large bowel movement and passed flatus yesterday Ileal conduit continues to function well Physical Exam Gastrointestinal (Abdomen): Inspection/Auscultation: abdomen not distended Percussion/Palpation: abdomen soft; abdomen nontender Results & Data Vital Signs (Past 12 Hours) Vital Signs Temp Pulse Pulse Resp BP Pulse Ox 01/07/19 07:23 96 H 01/07/19 06:50 37.1 C 99 H 20 139/88 93 01/06/19 23:08 36.5 C 96 H 18 119/77 93
--- NOTE | 2019-01-07 12:01 | Hospitalist Progress Note ---
Date of Service January 07, 2019 Assessment & Plan (1) SBO (small bowel obstruction): -Patient presenting from home with reports of abdominal distention, nausea, vomiting, no BM x 5 days -In the ED, CT ABD/pelvis shows high-grade small bowel obstruction with the transition point located within the lower mid abdomen/right lower quadrant, likely associated with a site of prior bowel anastomosis. -Of note, patient underwent total cystectomy with ileal conduit placement 08/2018 at [facility] for high-grade bladder cancer -Attempted to place NG tube in ED however nursing staff was unsuccessful -KUB next day on 01/06 - Persistent SBO -Had a large BM on 01/06 evening -Starting clear liquids today AM -General surgery consult - improving, but if worsens or need surgery need to transfer to [facility] given relatively recent surgery there. (2) JAYSON (acute kidney injury): Improved -Creatinine 1.6 (baseline ~0.8), now trending down -Likely prerenal nature secondary to poor p.o. intake, vomiting -Monitor trend (3) GERD (gastroesophageal reflux disease): -Change to PO pepcid (4) Dyslipidemia: -OK to restart PO meds Probable underlying dementia Patient has s/s of dementia, undergoing investigative work up for the same per . Patient is oriented only to self, knows that this is a hospital, have some paranoid delusions -Observe. No agitative episodes (5) DVT prophylaxis: -SQ heparin FULL CODE DISPOSITION Medical mx in progress Diet advanced to clear liquid today PT/OT recommends SNF with PT/OT. Patient's want home as patient would not go to SNF. Home with [facility]/PT/OT Subjective Patient denies any abdominal pain today. Had large bowel movement and passed flatus yesterday. No nausea, vomiting Wants to have something more to eat Physical Exam Physical Exam: GENERAL-awake, disoriented x2. Oriented to self, place. LUNGS- Air entry bilaterally equal. No rales, rhonchi, crackles, wheezes heard. HEART- Regular rate and rhythm. No murmurs ABDOMEN-ileal conduit present, soft, abd distension has improved, no guarding or rigidity, bowel sounds + EXTREMITIES- Good peripheral pulses, no edema Results & Data Vital Signs (Past 12 Hours) Vital Signs Temp Pulse Pulse Resp BP Pulse Ox 01/07/19 11:22 36.6 C 90 16 134/83 95 01/07/19 07:23 96 H 01/07/19 06:50 37.1 C 99 H 20 139/88 93
[2019-01-07] MEDS ORDERED: ACETAMINOPHEN 325 MG TAB PO PRN (12:02)
[2019-01-08] MEDS: HEPARIN SOD 5,000 UNIT/0.5 ML VIAL SQ SCH ×2 (05:15→13:31)
[2019-01-08 07:15] LABS: Hematocrit (blood only) 32.9 % (42-52); Hemoglobin 11.4 g/dL (14.0-18.0); Mean Corpuscular Hgb Conc 34.7 g/dL (32-36); Mean Corpuscular Volume 77.4 fL (80-100); Mean Platelet Volume 9.6 fL (7.4-10.4); Platelet Count 128 K/uL (130-400); RDW Coefficient of Variation 17.3 % (11.5-14.5); RDW Standard Deviation 49.1 fL (36.4-46.3); Red Blood Count 4.25 M/uL (4.7-6.1); White Blood Count 10.39 K/uL (4.8-10.8)
[2019-01-08 07:50] LABS: BUN Creatinine Ratio 27.6 (10-20); Creatinine Clr Calc Pharmacy 49.6 ml/min; Est GFR (African American) 73.8; Est GFR (Non-African American) 63.7; Potassium 3.4 mmol/L (3.5-5.1)
[2019-01-08] MEDS ORDERED: FAMOTIDINE 20 MG TAB PO SCH (09:00)
[2019-01-08] MEDS ORDERED: POTASSIUM CHLORIDE 20 MEQ TABCR PO STA (10:43)
--- NOTE | 2019-01-08 10:45 | Hospitalist Progress Note ---
Date of Service January 08, 2019 Assessment & Plan (1) SBO (small bowel obstruction): Patient presented from home with reports of abdominal distention, nausea, vomiting, no BM x 5 days -CT ABD/pelvis shows high-grade small bowel obstruction with the transition point located within the lower mid abdomen/right lower quadrant, likely associated with a site of prior bowel anastomosis. -Of note, patient underwent total cystectomy with ileal conduit placement 08/2018 at [facility] for high-grade bladder cancer -Attempted to place NG tube in ED however nursing staff was unsuccessful -KUB next day on 01/06 - Persistent SBO -Had a large BM on 01/06 evening ; second BM on 01/07/19 -Starting clear liquids on 01/07/19 --> Feels bloated and nauseated today, does not want me to advance his diet. Will hold off -General surgery consult - if worsens or need surgery need to transfer to [facility] given relatively recent surgery there. (2) JAYSON (acute kidney injury): Resolved -Creatinine 1.6 (baseline ~0.8), now trending down -Likely prerenal nature secondary to poor p.o. intake, vomiting (3) Dementia: Probable underlying dementia Patient has s/s of dementia, undergoing investigative work up for the same per . -Patient is oriented only to self, on and off has some paranoid delusions. -Observe. No agitative episodes (4) GERD (gastroesophageal reflux disease): -Restarted protonix daily (5) Dyslipidemia: -Restarted atorvastatin (6) DVT prophylaxis: -SQ heparin FULL CODE DISPOSITION Medical mx in progress Still on clear liquid, unable to advance today If worsens or no improvement, will need to consider transfer to [facility] as that is where he had his prior surgery. PT/OT recommends SNF with PT/OT. Patient's want home as patient would not go to SNF. Home with [facility]/PT/OT Subjective Patient continues to be confused, disoriented x3. Has a sitter by his side. Had second bowel movement yesterday. Passing gas. However today he does not want me to advance his diet, feels like he is bloated, nauseated. Did not have his Jell-O which is still sitting on the table. No vomiting, fever, chills. Physical Exam Physical Exam: GENERAL-awake, disoriented x3. Confused LUNGS- Air entry bilaterally equal. No rales, rhonchi, crackles, wheezes heard. HEART- Regular rate and rhythm. No murmurs ABDOMEN-ileal conduit present, Slightly more distended today, no guarding or rigidity, bowel sounds + EXTREMITIES- Good peripheral pulses, no edema Results & Data Vital Signs (Past 12 Hours) Vital Signs Temp Pulse Pulse Resp BP BP Pulse Ox 01/08/19 07:32 106 H 01/08/19 06:24 36.6 C 102 H 20 116/78 94 01/08/19 03:22 36.4 C L 108 H 18 133/88 92 01/07/19 23:21 92 H
[2019-01-08] MEDS ORDERED: SODIUM CHLORIDE 0.9% 1000ML 1,000 ML IV ONE ×2 (11:49→13:50)
[2019-01-08] MEDS ORDERED: METOPROLOL TARTRATE 1 MG/ML VIAL IV STA (11:50)
[2019-01-08] MEDS ORDERED: PIPERACILL/TAZOBAC CONSULT ACTIVE PRN (11:51)
[2019-01-08] MEDS ORDERED: PIPERACILLIN/TAZOBACTAM 3.375 GM in DEXTROSE 5% 100 ML IV ONE (12:15)
--- NOTE | 2019-01-08 12:19 | XRay Report ---
XR KUB/Abdomen 1 view CLINICAL HISTORY: Worsening abd distension COMPARISON STUDY: 01/06/2019 FINDINGS: There is a right lower quadrant ostomy. There is progressive small bowel dilatation with sam wel loops measuring up to 9 cm in diameter. There is a double wall sign, a finding which can indicate free intraperitoneal air. Erect or decubitus views are recommended in follow-up. IMPRESSION: 1. Progressive small bowel dilatation measuring up to 9 cm in diameter 2. Double wall sign, a finding which can indicate free intraperitoneal air. Erect or decubitus views are recommended in follow-up. Electronically signed by: Logan Braswell M.D. 01/08/2019 12:18 PM
[2019-01-08] MEDS ORDERED: LIDOCAINE 2% JELLY 5 ML TUBE ONE (12:45)
[2019-01-08] MEDS: SODIUM CHLORIDE 0.9% 500 ML IV SCH ×2 (13:11→22:17)
--- NOTE | 2019-01-08 13:41 | Communication Note ---
Date of Service: January 08, 2019 Received a call from RN as patient's heart rate did go up to 130s, blood pressure in 80s. He also had a fever spike of 38.5 C. Patient has worsening of abdominal distention, abdominal pain. EXAM Generalawake, disoriented x3 Lungs AEBE, no wheezing, rales Heart- Sinus tachycardia Abdomen - Firm, Abdominal distension +, Abdominal tenderness, BS present Ext- No edema A/P: Patient with heart rate in 130s, blood pressure 80s, fever spike 38.5 with KUB suggestive of progressive small bowel obstruction, double wall sign likely indicative of intraperitoneal free air--> developing peritonitis and hemodynamic instability. Discussed with Dr Ludwig who evaluated him by bedside and placed an NG tube and recommends transfer to [facility] as will need emergent surgery. BP - still in 80s after a litre bolus of NS Discussed with patient's about goals of care - DNR/DNI (has living will). Leaning towards hospice care as does not want to put him through another surgery given poor baseline of functioning/developing dementia. Wants to talk to her daughter. Explained her that he is critical and prognosis is very poor. Understands, wants to hold off aggressive measures for now and will get back to me soon.
--- NOTE | 2019-01-08 13:59 | XRay Report ---
XR KUB/Abdomen 1 view CLINICAL HISTORY: 73 years-old Male presenting with ng tube placement. TECHNIQUE: Single supine view of the abdomen was obtained. COMPARISON: 01/08/[address] from 01/05/2019. FINDINGS: Severe gaseous distention of small bowel with an apparent diameter of 7 cm though this may be affecte d by magnification. Small bowel has a stacked appearance. Lucency in the abdomen makes definitive exc lusion of pneumoperitoneum not possible. Nasogastric tube terminates in the gastric body with side hole containing within the gastric lumen. Allowing for bowel gas and stool, no calcifications to suggest nephrolithiasis. Degenerative changes of the spine. IMPRESSION: 1. Severe gaseous distention of small bowel consistent with small bowel obstruction. This has been w orsening since initial presentation. 2. Pneumoperitoneum cannot be excluded. Decubitus views recommended. 3. Appropriately positioned nasogastric tube. The report will be called/faxed according to standard departmental protocol. Electronically signed by: Sea Michael M.D. 01/08/2019 1:58 PM
[2019-01-08] MEDS ORDERED: SODIUM CHLORIDE 0.9% 1000ML 500 ML IV ONE (15:27)
[2019-01-08] MEDS ORDERED: ACETAMINOPHEN 650 MG SUPP PR PRN (16:21)
[2019-01-08] MEDS ORDERED: ONDANSETRON INJ 2 MG/ML 2 ML VIAL IV PRN (16:24)
--- NOTE | 2019-01-08 17:13 | Communication Note ---
Date of Service: January 08, 2019 Had a detailed discussion with the patient's , relative over phone who is a physician about goals of care and current condition. Patient's , family opted for hospice care. Patient has already pulled his NG tube out and demanding ice chips. Transitioned to hospice care. Morphine 5 mg every 2 hours PRN, Ativan every 4 hours as needed Dilaudid. Okay to give pleasure feeds. Family by bedside. Dr. Ludwig was informed about the transitional care.
[2019-01-08] MEDS ORDERED: PIPERACILLIN/TAZOBACTAM 3.375 GM in DEXTROSE 5% 100 ML IV SCH (18:00)
[2019-01-08] MEDS ORDERED: LORazepam 1 MG TAB SL PRN (19:17)
[2019-01-08] MEDS ORDERED: ACETAMINOPHEN 325 MG TAB PO PRN (19:17)
[2019-01-08] MEDS ORDERED: MoRPHine SULFATE 5 MG/0.25 ML UDP PO PRN (19:17)
[2019-01-08] MEDS ORDERED: FAMOTIDINE 20 MG in SYRINGE 3 ML IV SCH (21:00)
[2019-01-08] MEDS ORDERED: FAMOTIDINE 20MG/5ML IV PUSH IV SCH (21:00)
[2019-01-08] MEDS ORDERED: ATORVASTATIN 20 MG TAB PO SCH (21:00)
[2019-01-08] MEDS ORDERED: SERTRALINE HCL 50 MG TABLET PO SCH (21:00)
[2019-01-08] MEDS ORDERED: PROMETHAZINE HCL 12.5 MG in SODIUM CHLORIDE 0.9% 50 ML IV PRN (22:37)
[2019-01-09] MEDS ORDERED: PANTOprazole 40 MG TAB PO SCH (09:00)
--- NOTE | 2019-01-09 10:12 | Discharge Summary ---
Date of Service January 09, 2019 Admission HPI Per Admitting Provider 73-year-old male who presents the ED for evaluation of abdominal pain, nausea, vomiting, diarrhea. Of note, patient recently underwent total cystectomy with ureteroileal conduit placement 08/2018 at [facility] for high-grade bladder cancer. Patient had been doing overall well since his surgery. Patient has been having some memory issues and is therefore a somewhat poor historian. is at the bedside who provides some history as well. Patient reports he has noted increasing abdominal distention over the past 2 weeks. Over the past 2 days, he has developed abdominal pain with nausea and vomiting. He denies hematemesis or coffee-ground emesis. Last normal bowel movement was 5 days ago. Patient does not believe he has been passing flatus for the past couple of days. Patient has been struggling with constipation since his surgery. He denies bright red bleeding per rectum or dark tarry stools. No chest pain or shortness of breath. Has had some occasional chills however did not take his temperature. Denies lightheadedness, dizziness, diaphoresis, syncopal events. In the ED, CT ABD/pelvis is showing high-grade small bowel obstruction with the transition point located within the lower mid abdomen/right lower quadrant, likely associated with a site of prior bowel anastomosis. Patient was given IVF and IV Zofran. Admission Exam Per Admitting Provider Constitutional: WD/WN, vitals as above Eyes: PERRL, conjunctivae normal, anicteric sclerae ENMT: external ear and nose normal, oropharynx normal Respiratory: normal respiratory effort, lungs clear to auscultation Cardiovascular: regular, normal peripheral pulses Extremities: no edema Gastrointestinal: + abdomen distended; + abnormal bowel sounds (Hypoactive) Percussion/Palpation: + abdomen tender (Generalized); + abdomen not soft (Semifirm) and no hepatosplenomegaly Ileal conduit noted to RLQ, clear yellow urine noted in bag, stoma pink Musculoskeletal: no cyanosis or clubbing, extremities motor strength 5/5 Skin: no rashes, warm and dry Neurologic: PERRL, EOMI, accommodation nl, no face palsy, no dysarthria Psychiatric: Orientation: alert and oriented x 3 Affect: + flat affect Cognition: + recent memory not intact Insight: + limited insight Principal Diagnosis Small Bowel Obstruction Acute Kidney Injury Dementia GERD Discharge Exam GENERAL-awake, disoriented x3. Confused LUNGS- Air entry bilaterally equal. No rales, rhonchi, crackles, wheezes heard. HEART- Regular rate and rhythm. No murmurs ABDOMEN-ileal conduit present, Slightly more distended today, no guarding or rigidity, bowel sounds + EXTREMITIES- Good peripheral pulses, no edema Discharge Data Allergies Allergy/AdvReac Type Severity Reaction Status Date / Time No Known Allergies Allergy Verified 01/05/19 08:20 Consultations 01/05/19 09:53 ED Decision to Admit Stat 01/05/19 13:25 Consult General Surgery Routine 01/08/19 09:41 Consult Case Management - Discharge Planning Routine Ordered Studies 01/05/19 08:21 CT abd pelvis wo con Stat XR KUB/Abdomen 1 view CLINICAL HISTORY: 73 years-old Male presenting with ng tube placement. TECHNIQUE: Single supine view of the abdomen was obtained. COMPARISON: 01/08/[address] from 01/05/2019. FINDINGS: Severe gaseous distention of small bowel with an apparent diameter of 7 cm though this may be affected by magnification. Small bowel has a stacked appearance. Lucency in the abdomen makes definitive exclusion of pneumoperitoneum not possible. Nasogastric tube terminates in the gastric body with side hole containing within the gastric lumen. Allowing for bowel gas and stool, no calcifications to suggest nephrolithiasis. Degenerative changes of the spine. IMPRESSION: 1. Severe gaseous distention of small bowel consistent with small bowel obstruction. This has been worsening since initial presentation. 2. Pneumoperitoneum cannot be excluded. Decubitus views recommended. 3. Appropriately positioned nasogastric tube. The report will be called/faxed according to standard departmental protocol. Electronically signed by: Sea Michael M.D. 01/08/2019 1:58 PM Dictated: 01/08/19 1355 Transcribed: 01/08/19 1355 XR KUB/Abdomen 1 view CLINICAL HISTORY: Worsening abd distension COMPARISON STUDY: 01/06/2019 FINDINGS: There is a right lower quadrant ostomy. There is progressive small bowel dilatation with bowel loops measuring up to 9 cm in diameter. There is a double wall sign, a finding which can indicate free intraperitoneal air. Erect or decubitus views are recommended in follow-up. IMPRESSION: 1. Progressive small bowel dilatation measuring up to 9 cm in diameter 2. Double wall sign, a finding which can indicate free intraperitoneal air. Erect or decubitus views are recommended in follow-up. Electronically signed by: Logan Braswell M.D. 01/08/2019 12:18 PM Dictated: 01/08/19 1214 Transcribed: 01/08/191213 KUB CLINICAL HISTORY: Small bowel obstruction. FINDINGS: 2 AP supine abdominal radiographs are compared to abdominal radiograph and CT dated 01/05/2019. There is evidence of persistent small bowel obstruction. Small bowel loops measure up to 5.5 cm. No evidence of intraperitoneal free air is seen on these supine images. There are no abnormal abdominal calcifications. The skeletal structures are osteopenic. Advanced lumbosacral spondylosis is observed. Midline sternotomy wires are noted. IMPRESSION: Findings are consistent with persistent small bowel obstruction. Electronically signed by: Clint Jo M.D. 01/06/2019 8:34 AM Dictated: 01/06/19832 Transcribed: 01/06/19832 KUB HISTORY: Status post placement of an enteric tube NGT placed COMPARISON: CT abdomen and pelvis 01/05/2019 FINDINGS: Prior median sternotomy. A catheter projects over the midline which loops upon itself, distal tip projected superiorly outside the [id number]. Multiple distended small bowel loops redemonstrated throughout the abdomen. No pneumatosis or pneumoperitoneum. Degenerative changes of the spine. IMPRESSION: 1. High-grade small bowel obstruction without pneumoperitoneum. 2. Enteric tube looped within the esophagus, distal tip projected superiorly. Repositioning with follow-up imaging is needed. Electronically signed by: Alirio Diego M.D. 01/05/2019 12:17 PM Dictated: 01/05/196 Transcribed: 01/05/191215 ABDOMEN AND PELVIS CT WITHOUT CONTRAST CT DOSE: 297.49 mGy.cm HISTORY: lower abd pain, n/v/d TECHNIQUE: Multiaxial CT images of the abdomen and pelvis were performed without contrast. A dose lowering technique was utilized adhering to the principles of ALARA. COMPARISON STUDY: None. FINDINGS: Mild dependent changes seen at the lung bases. No pneumoperitoneum. No pneumatosis. The unenhanced liver, gallbladder, spleen, pancreas, and adrenal glands are unremarkable. Normal caliber abdominal aorta. The right kidney is within normal limits. Bilateral renal hypodense lesions are incompletely characterized on this noncontrast study but favor cysts. Moderate to severe left-sided hydronephrosis to the level of the ureteropelvic junction. No renal or ureteral calculi identified. Large amount of well-formed stool within the rectum. The majority of the colon is decompressed. The right lower quadrant ostomy. Distended gas and fluid-filled loops of small bowel seen throughout the abdomen. These measure up to 6.4 cm in diameter. There are decompressed loops of small bowel within the right lower quadrant and lower mid abdomen at the area of suture material best seen on images 362 through 373. This likely represents the site of the high-grade small bowel obstruction. Small fat-containing midline ventral hernia. IMPRESSION: 1. High-grade small bowel obstruction with the transition point located within the lower mid abdomen/right lower quadrant, likely associated with a site of mario or bowel anastomosis. 2. Moderate to severe left-sided hydronephrosis to the level of the ureteropelvic junction. This may be secondary to compression of the ureter from the distended bowel loops. No renal or ureteral calculi identified. 3. Large amount of well-formed stool within the distal colon. 4. Right lower quadrant colostomy. Electronically signed by: Dereje Aldana M.D. 01/05/2019 9:32 AM Dictated: 01/05/19924 Transcribed: 01/05/19924 Hospital Course (1) SBO (small bowel obstruction): Patient presented from home with reports of abdominal distention, nausea, vomiting, no BM x 5 days -CT ABD/pelvis shows high-grade small bowel obstruction with the transition point located within the lower mid abdomen/right lower quadrant, likely associated with a site of prior bowel anastomosis. -Of note, patient underwent total cystectomy with ileal conduit placement 08/2018 at [facility] for high-grade bladder cancer -Attempted to place NG tube in ED however nursing staff was unsuccessful -KUB next day on 01/06 - Persistent SBO -Had a large BM on 01/06 evening ; second BM on 01/07/19 -Starting clear liquids on 01/07/19 --> Feels bloated and nauseated today, does not want me to advance his diet. Will hold off -General surgery consult - if worsens or need surgery need to transfer to [facility] given relatively recent surgery there. Addendum Date of Service: January 08, 2019 Had a detailed discussion with the patient's , relative over phone who is a physician about goals of care and current condition. Patient's , family opted for hospice care. Patient has already pulled his NG tube out and demanding ice chips. Transitioned to hospice care. Morphine 5 mg every 2 hours PRN, Ativan every 4 hours as needed Dilaudid. Okay to give pleasure feeds. Family by bedside. Dr. Ludwig was informed about the transitional care. (2) JAYSON (acute kidney injury): Resolved -Creatinine 1.6 (baseline ~0.8), now trending down -Likely prerenal nature secondary to poor p.o. intake, vomiting (3) Dementia: Probable underlying dementia Patient has s/s of dementia, undergoing investigative work up for the same per . -Patient is oriented only to self, on and off has some paranoid delusions. -Observe. No agitative episodes (4) GERD (gastroesophageal reflux disease): -Restarted protonix daily (5) Dyslipidemia: -Restarted atorvastatin (6) DVT prophylaxis: -SQ heparin FULL CODE DISPOSITION Medical mx in progress Still on clear liquid, unable to advance today If worsens or no improvement, will need to consider transfer to [facility] as that is where he had his prior surgery. PT/OT recommends SNF with PT/OT. Patient's want home as patient would not go to SNF. [facility] with [facility]/PT/OT Total Time Total Time Spent Total Time Spent (In Minutes): 15 minutes Total Time Includes: Examination of the Patient, Discharge Planning, Medication Reconciliation, Communication With Other Providers and Other Discharge Plan Discharge Items Patient Disposition: Admission Data Admit Date/Time: 01/05/19 10:23 Service: Medical Other NE Date/Time DO NOT enter until pt leaves facility: 01/09/19 04:30
== END 2019-01-09 04:30 | disposition expired | DRG 389 ==
LOC: ED 07:45 → 2N 10:23 → 4W 01-08 17:07